=== PATIENT | female | born 2000 | race Caucasian/White ===

== ENCOUNTER 2021-08-29 15:49 | Outpatient (CLI) | payer OTHER, SELFPAY ==
[2021-08-29 16:07] VITALS: BP 120/77; PULSE 110; RESP 18; TEMP 36.8; O2SAT 99; BMI 35.6
[2021-08-29 16:16] VITALS: BP 120/77; PULSE 110; RESP 18; TEMP 36.8; O2SAT 99; BMI 35.6
[2021-08-29 17:18] LABS: Microscopic, Urine URINE MICROSCOPIC (MICROSCOPIC)
[2021-08-29 17:23] LABS: Appearance,Urine CLEAR (Clear); Bilirubin,Urine Negative (Negative); Blood, Urine Negative (Negative); Color,Urine YELLOW (Yellow); Glucose,Urine (UA) Negative (Negative); Ketones,Urine Negative (Negative); Leukocyte Esterase,Urine 1+ (Negative); Nitrate,Urine Negative (Negative); Protein,Urine Negative (Negative); Urobilinogen,Urine 0.2 EU/dl (0.2)
[2021-08-29 17:29] LABS: Benzodiazepines Screen,Urine Negative ng/ml (<200)
[2021-08-29 17:30] LABS: Amphetamine/Metha Screen,Urine Negative ng/ml (<1000)
[2021-08-29 17:31] LABS: Barbiturates Screen,Urine Negative ng/ml (<200); Cannabinoid Screen,Urine Negative ng/ml (<50)
[2021-08-29 17:32] LABS: Cocaine Screen,Urine Negative ng/ml (<300)
[2021-08-29 17:33] LABS: Methadone Screen,Urine Negative ng/ml (<300); Opiate Screen,Urine Negative ng/ml (<300)
[2021-08-29 17:34] LABS: Phencyclidine Screen,Urine Negative ng/ml (<25)
[2021-08-29 17:38] LABS: WBC,Urine Occasional #/hpf (0-3)
== END 2021-08-29 17:35 | disposition home or self-care (01) ==
LOC: OBOUT 15:55 → OB 15:55
PROVIDERS: Visit Provider Nurse Practitioner Obstetrics & Gynecology
DX: O60.03 Preterm labor without delivery, third trimester (principal); Z3A.38 38 weeks gestation of pregnancy
CPT/HCPCS: 59025; 80305; 81001; 87086; G0463